=== PATIENT | female | born 1985 | race Caucasian/White ===

== ENCOUNTER 2023-12-19 12:11 | Day surgery (SDC) | payer OTHER ==
[2023-12-19 12:36] VITALS: BMI 38.3
[2023-12-19] MEDS ORDERED: hydrALAZINE 20 MG/ML VIAL SLOW IVP PRN (12:50)
[2023-12-19 13:17] LABS: #Basophils 0.03 10x3/uL (0.0-0.2); #Eosinphils 0.08 10x3/uL (0.0-0.5); #Monocytes 0.59 10x3/uL (0.0-1.1); #Neutrophils 6.06 10x3/uL (1.5-8.4); %Basophils 0.4 % (0.0-2.0); %Lymphocytes 13.9 % (18.0-47.0); %Monocytes 7.5 % (0.0-10.0); %Neutrophils 76.8 % (40.0-75.0); Hematocrit 34.7 % (34.9-44.5); Mean Corpuscular HGB CONC 34.6 g/dL (32.0-36.0); Mean Corpuscular Hemoglobin 31.3 pg (27.0-33.0); Mean Corpuscular Volume 90.6 fL (81.6-98.3); Mean Platelet Volume 9.3 fL (7.4-10.4); Platelet Count 171 10x3/uL (150-450); RBC Distribution Width 13.2 % (11.5-14.5); Red Blood Cell (RBC) Count 3.83 10x6/uL (3.90-5.03); White Blood Cell (WBC) Count 7.9 10x3/uL (3.5-10.5)
[2023-12-19 13:27] LABS: Creatinine, Urine 44.19 mg/dL (47-110)
[2023-12-19 13:28] LABS: ALT (SGPT) 15 U/L (8-55); AST (SGOT) 16 U/L (5-34); Albumin 2.5 g/dL (3.5-5.0); Alkaline Phosphatase 110 U/L (40-110); Anion Gap 12 mmol/L (10-20); BUN (Urea Nitrogen) 9 mg/dL (7.0-18.7); Bilirubin, Total 0.2 mg/dL (0.2-1.2); Calc. Creatinine Clearance 170 mL/min (70-130); Calcium 9.5 mg/dL (7.8-10.44); Carbon Dioxide 21 mmol/L (22-29); Chloride 108 mmol/L (98-107); Estimated GFR 117; Globulin 3.5 g/dL (2.4-3.5); Glucose 85 mg/dL (70-105); Potassium 3.8 mmol/L (3.5-5.1); Sodium 137 mmol/L (136-145)
[2023-12-19 14:13] LABS: HIV (1/2) Antibody/Antigen Non-Reactive (NonReactive); HIV 1/2 INDEX 0.07 S/CO (<1.00)
== END 2023-12-19 17:20 | disposition home or self-care (01) ==
LOC: CSHLD/OP 12:11
PROVIDERS: ATTEND Family Medicine
DX: O99.891 Other specified diseases and conditions complicating pregnancy (principal); R03.0 Elevated blood-pressure reading, without diagnosis of hypertension; O09.43 Supervision of pregnancy with grand multiparity, third trimester; Z3A.34 34 weeks gestation of pregnancy; Z79.899 Other long term (current) drug therapy; Z79.82 Long term (current) use of aspirin
CPT/HCPCS: 36415; 80053; 82570; 84156; 85025; 87389; 99283

== ENCOUNTER 2023-12-20 23:29 | Day surgery (SDC) | payer OTHER ==
[2023-12-21] MEDS ORDERED: hydrALAZINE 20 MG/ML VIAL SLOW IVP PRN (00:59)
[2023-12-21 01:35] LABS: #Basophils 0.03 10x3/uL (0.0-0.2); #Eosinphils 0.12 10x3/uL (0.0-0.5); #Monocytes 0.89 10x3/uL (0.0-1.1); #Neutrophils 6.75 10x3/uL (1.5-8.4); %Basophils 0.3 % (0.0-2.0); %Eosinophils 1.3 % (0.0-6.0); %Lymphocytes 17.3 % (18.0-47.0); %Monocytes 9.4 % (0.0-10.0); %Neutrophils 71.3 % (40.0-75.0); Hematocrit 35.9 % (34.9-44.5); Hemoglobin 12.9 g/dL (12.0-15.5); Mean Corpuscular HGB CONC 35.9 g/dL (32.0-36.0); Mean Corpuscular Hemoglobin 31.9 pg (27.0-33.0); Mean Corpuscular Volume 88.9 fL (81.6-98.3); Mean Platelet Volume 9.9 fL (7.4-10.4); Platelet Count 204 10x3/uL (150-450); RBC Distribution Width 13.2 % (11.5-14.5); Red Blood Cell (RBC) Count 4.04 10x6/uL (3.90-5.03); White Blood Cell (WBC) Count 9.5 10x3/uL (3.5-10.5)
[2023-12-21 01:42] LABS: ALT (SGPT) 17 U/L (8-55); AST (SGOT) 18 U/L (5-34); Albumin 2.8 g/dL (3.5-5.0); Alkaline Phosphatase 125 U/L (40-110); Anion Gap 15 mmol/L (10-20); BUN (Urea Nitrogen) 11 mg/dL (7.0-18.7); Bilirubin, Total 0.2 mg/dL (0.2-1.2); Calc. Creatinine Clearance 0 mL/min (70-130); Calcium 9.9 mg/dL (7.8-10.44); Carbon Dioxide 20 mmol/L (22-29); Chloride 109 mmol/L (98-107); Estimated GFR 117; Globulin 3.5 g/dL (2.4-3.5); Glucose 101 mg/dL (70-105); Protein, Total 6.3 g/dL (6.0-8.3); Sodium 140 mmol/L (136-145)
[2023-12-21] MEDS: Acetaminophen 500 MG TAB PO SCH (02:01)
== END 2023-12-21 03:08 | disposition home or self-care (01) ==
LOC: CSHLD/OP 23:29
PROVIDERS: ATTEND Family Medicine
DX: O99.891 Other specified diseases and conditions complicating pregnancy (principal); R03.0 Elevated blood-pressure reading, without diagnosis of hypertension; R51.9 Headache, unspecified; O14.93 Unspecified pre-eclampsia, third trimester; Z79.899 Other long term (current) drug therapy; Z3A.24 24 weeks gestation of pregnancy
CPT/HCPCS: 80053; 82570; 84156; 85025

== ENCOUNTER 2024-01-01 13:25 | Inpatient (IN) | payer MEDICAID ==
[2024-01-01 14:25] VITALS: BMI 38.5
[2024-01-01] MEDS ORDERED: Tranexamic Acid 1,000 MG/10 ML VIAL IVP PRN (17:50)
[2024-01-01] MEDS ORDERED: Promethazine HCl 25 MG/ML VIAL IM PRN (17:50)
[2024-01-01] MEDS ORDERED: Acetaminophen 500 MG TAB PO PRN (17:50)
[2024-01-01] MEDS ORDERED: Misoprostol 200 MCG TAB PR PRN (17:50)
[2024-01-01] MEDS ORDERED: Methylergonovine 0.2 MG/ML VIAL IM PRN (17:50)
[2024-01-01] MEDS ORDERED: Lidocaine 1% (PF) 30 ML VIAL SC PRN (17:50)
[2024-01-01] MEDS ORDERED: Carboprost 250 MCG/ML AMP IM PRN (17:50)
[2024-01-01] MEDS ORDERED: Diphenoxylate HCl/Atropine Tablet PO PRN (17:50)
[2024-01-01] MEDS ORDERED: hydrALAZINE 20 MG/ML VIAL SLOW IVP PRN ×2 (17:59)
[2024-01-01] MEDS ORDERED: Calcium Gluc 4.6 MEQ/10 ML (100 MG/ML) SLOW IVP PRN (17:59)
[2024-01-01] MEDS ORDERED: Labetalol HCl 100 MG/20 ML VIAL SLOW IVP PRN ×2 (17:59)
[2024-01-01] MEDS ORDERED: Lorazepam 2 MG/ML VIAL SLOW IVP PRN (17:59)
[2024-01-01] MEDS ORDERED: Oxytocin 30 units/NS 500 ML 500 ML IV SCH ×2 (18:00)
[2024-01-01 18:29] LABS: ALT (SGPT) 18 U/L (8-55); AST (SGOT) 18 U/L (5-34); Albumin 2.8 g/dL (3.5-5.0); Alkaline Phosphatase 123 U/L (40-110); Anion Gap 16 mmol/L (10-20); BUN (Urea Nitrogen) 13 mg/dL (7.0-18.7); Bilirubin, Total 0.2 mg/dL (0.2-1.2); Calc. Creatinine Clearance 158 mL/min (70-130); Calcium 9.2 mg/dL (7.8-10.44); Carbon Dioxide 17 mmol/L (22-29); Chloride 108 mmol/L (98-107); Estimated GFR 115; Globulin 3.1 g/dL (2.4-3.5); Glucose 67 mg/dL (70-105); Hematocrit 35.3 % (34.9-44.5); Hemoglobin 12.4 g/dL (12.0-15.5); Mean Corpuscular HGB CONC 35.1 g/dL (32.0-36.0); Mean Platelet Volume 11.1 fL (7.4-10.4); Platelet Count 190 10x3/uL (150-450); Potassium 4.2 mmol/L (3.5-5.1); Protein, Total 5.9 g/dL (6.0-8.3); RBC Distribution Width 13.6 % (11.5-14.5); Red Blood Cell (RBC) Count 3.88 10x6/uL (3.90-5.03); Sodium 137 mmol/L (136-145); White Blood Cell (WBC) Count 8.9 10x3/uL (3.5-10.5)
[2024-01-01 18:46] LABS: Syphilis Antibody Nonreactive (Nonreactive); Syphilis Antibody Index 0.04 S/CO (<1.00 Non-Reactive)
[2024-01-01 18:47] LABS: HBsAg Index 0.15 S/CO (0-0.99); Hep B Surf Ag - L&D Non-Reactive S/CO (NonReactive)
[2024-01-01] MEDS: Labetalol HCl 100 MG TAB PO SCH (22:06)
[2024-01-01] MEDS: Prenatal Vitamin 1 TAB PO SCH (22:35)
[2024-01-02] MEDS: Lactated Ringer's 1,000 ML IV SCH (00:04)
[2024-01-02] MEDS: Oxytocin 30 units/NS 500 ML 500 ML IV SCH (05:03)
[2024-01-02] MEDS: hydrALAZINE 20 MG/ML VIAL SLOW IVP PRN (07:47)
[2024-01-02] MEDS: fentaNYL 50 mcg/mL 1 mL Vial SLOW IVP PRN (09:37)
[2024-01-02] MEDS: Ondansetron PF 4 MG/2 ML Vial IVP PRN (10:08)
[2024-01-02] MEDS: Magnesium Sulfate 20 gm/500 ml 20 GM/500 ML BAG ONE (10:24)
[2024-01-02] MEDS: Azithromycin 500 MG VIAL ONE (14:30)
[2024-01-02] MEDS: CEFAZOLIN 2 GM VIAL ONE (14:30)
[2024-01-02] MEDS ORDERED: Labetalol HCl 100 MG/20 ML VIAL SLOW IVP PRN (15:52)
[2024-01-02] MEDS ORDERED: hydrALAZINE 20 MG/ML VIAL SLOW IVP PRN ×2 (15:52)
[2024-01-02] MEDS ORDERED: HYDROcodone/Acetaminophen 5/325 mg Tablet PO PRN (15:52)
[2024-01-02] MEDS ORDERED: Ondansetron PF 4 MG/2 ML Vial IVP PRN (15:52)
[2024-01-02] MEDS ORDERED: Calcium Gluc 4.6 MEQ/10 ML (100 MG/ML) SLOW IVP PRN (15:52)
[2024-01-02] MEDS ORDERED: Milk Of Magnesia 30 ML UDCUP PO PRN (15:52)
[2024-01-02] MEDS ORDERED: Boostrix 0.5 ML (Tdap) VIAL (>/=7 yrs of age) IM ONE (15:52)
[2024-01-02] MEDS ORDERED: Bisacodyl 10 MG SUPP PR PRN (15:52)
[2024-01-02] MEDS ORDERED: Lorazepam 2 MG/ML VIAL SLOW IVP PRN (15:52)
[2024-01-02] MEDS ORDERED: Promethazine HCl 25 MG/ML VIAL IM PRN (15:52)
[2024-01-02] MEDS: Ferrous Sulfate 325 MG TAB PO SCH (17:42)
[2024-01-02] MEDS: Ibuprofen 800 MG TAB PO SCH (17:45)
[2024-01-02] MEDS: Docusate 100 MG CAP PO SCH (21:00)
[2024-01-03] MEDS: Magnesium Sulfate 20 gm/500 ml 20 GM/500 ML BAG ONE ×2 (05:00→13:16)
[2024-01-03] MEDS: Prenatal Vitamin 1 TAB PO SCH (09:40)
[2024-01-03] MEDS: Acetaminophen 500 MG TAB PO PRN (11:06)
[2024-01-04] MEDS: Labetalol HCl 100 MG TAB PO SCH (17:20)
[2024-01-04] MEDS: hydrALAZINE 20 MG/ML VIAL ONE (21:08)
[2024-01-04] MEDS: hydrALAZINE 20 MG/ML VIAL SLOW IVP SCH (23:23)
[2024-01-05] MEDS: Labetalol HCl 200 MG TAB PO SCH ×2 (13:40→22:00)
[2024-01-05] MEDS: hydrALAZINE 20 MG/ML VIAL SLOW IVP SCH (16:51)
[2024-01-05] MEDS ORDERED: hydrALAZINE 20 MG/ML VIAL SLOW IVP PRN (16:52)
[2024-01-05] MEDS: Labetalol HCl 100 MG TAB PO SCH (17:23)
[2024-01-06] MEDS: NIFEdipine XL 60 MG ER.TAB PO SCH (08:52)
[2024-01-06 19:54] VITALS: TEMP 98.1
[2024-01-07] MEDS: NIFEdipine XL 30 MG ER.TAB PO SCH (11:07)
[2024-01-07 11:09] VITALS: BP 108/62
[2024-01-08] MEDS ORDERED: NIFEdipine XL 30 MG ER.TAB PO SCH (09:00)
== END 2024-01-07 12:30 | disposition home or self-care (01) | DRG 807 ==
LOC: CSHLD 13:25 → CSHPP 01-03 12:40
PROVIDERS: ADMIT Family Medicine; ATTEND Family Medicine
PROC: 10E0XZZ Delivery of Products of Conception, External Approach (ICD-10-PCS; principal; 2024-01-02)
PROC: 3E033VJ Introduction of Other Hormone into Peripheral Vein, Percutaneous Approach (ICD-10-PCS; 2024-01-02)
DX: O14.14 Severe pre-eclampsia complicating childbirth (principal); Z37.0 Single live birth; Z3A.36 36 weeks gestation of pregnancy; Z79.82 Long term (current) use of aspirin; Z79.899 Other long term (current) drug therapy; O36.5930 Maternal care for other known or suspected poor fetal growth, third trimester, not applicable or unspecified
CPT/HCPCS: 36415; 51702; 80053; 85027; 86780; 86850; 86900; 86901; 87340; 88307; J0360; J2405; J2590; J3010; J3475; J7120